=== PATIENT | female | born 2000 | race Caucasian/White ===

== ENCOUNTER 2025-07-13 10:47 | Emergency (ER) | payer MEDICAID ==
[~2025-07-13] VITALS: Ht 162.6 cm; Wt 49.0 kg
[2025-07-13 10:50] VITALS: TEMP 97.7
[2025-07-13 11:11] LABS: MEAN PLATELET VOLUME 8.5 FL (7.4-10.4); RED CELL DISTRIBUTION WIDTH 12.9 % (11.5-14.5)
[2025-07-13 11:23] LABS: CREATININE 0.85 MG/DL (0.40-0.90); TOTAL CARBON DIOXIDE 27.4 MMOL/L (24-32); eCRCL 78 ML/MIN; eGFR 81 ML/MIN
--- NOTE | 2025-07-13 11:27 | Physician Documentation ---
History of Present Illness Chief Complaint: Abdominal Pain Stated Complaint: KIDNEY PAIN Time Seen by MD: 11:19 HPI This is a pleasant 25-year-old female who presents for evaluation of one week of diffuse abdominal pain accompanied by nausea, vomiting, chills and sweats. No obvious trigger provocation. Initially thought this was related to her period, however despite her menstrual cycle finishing up the pain continued. And did not attempt to treat her symptoms. Smokes, drinks, denies drug use. Medication Reconciliation Allergies: Coded Allergies: No Known Allergies (Unverified , 07/13/25) Review of Systems ROS 10 point review of systems was performed and unless noted above in HPI is negative for acute process/complaint. Physical Exam Vital Signs: Temperature: 97.7, Heart Rate: 119, Respiratory Rate: 16, BP: 155/107, Pulse Oximetry: 98, Weight: 49.000 Oxygen Flow Rate: 0 Physical Exam GENERAL: Awake, alert, oriented, GCS 15, no apparent distress, non-toxic appearing, answers questions, follows commands appropriately. Examined in bed 15. HEENT: Atraumatic, normocephalic, pupils equal, extraocular muscles intact, sclerae anicteric, mucus membranes moist, oropharynx is clear, no stridor. NECK: supple, full active range of motion, trachea midline, no thyromegaly, no lymphadenopathy, no JVD. CARDIOVASCULAR: regular rate/rhythm, no murmurs/gallops/rubs, Pulses are 2+ in all extremities and symmetric. Capillary refill less than 2 seconds. PULMONARY: Nonlabored, good air movement ,no respiratory distress, speaking in full sentences, clear to auscultation bilaterally, no wheezing, no ronchi, no rales, no accessory muscle use. GASTROINTESTINAL: Soft, diffuse abdominal tenderness to palpation reproducing chief complaint without guarding or rebound, non-distended, normal active bowel sounds, no organomegaly, no pulsatile masses, no CVA tenderness. NEUROLOGIC: Lucid with normal mental status. Normal facial symmetry. Moves all extremities symmetrically and with purpose. No truncal ataxia. Speech is fluid without evidence of dysarthria or aphasia, no focal deficits appreciated. MUSCULOSKELETAL: There is full range of motion of all extremities. There is no joint pain or joint swelling or joint erythema. There is no muscle pain or tenderness or swelling. EXTREMITIES: warm, well-perfused, no cyanosis, no clubbing, no edema, no acute deformities. Skin: warm, dry, no rashes or lesions, no jaundice, no petechiae orpurpura. No ecchymosis. PSYCHIATRIC: Normal affect, normal insight, normal concentration. Focused exam: [] Progress Results/Orders Results/Orders Orders - BLANQUITA MALHOTRA DO Urinalysis, Cult If Indicated (07/13/25 10:55) Hcg, Ur Ql (07/13/25 10:55) BMP (07/13/25 10:55) Lipase (07/13/25 10:55) CMP (07/13/25 10:55) Completed Orders - BLANQUITA MALHOTRA DO Cbc/Diff (07/13/25 10:55) Vital Signs 07/13/25 10:50 Temp 97.7 Pulse 119 Resp 16 B/P (MAP) 155/107 Pulse Ox 98 O2 Flow Rate 0 Laboratory Tests Test 07/13/25 10:59 White Blood Count 8.0 Red Blood Count 4.80 Hemoglobin 15.9 Hematocrit 46.4 H Mean Corpuscular Volume 96.7 Mean Corpuscular Hemoglobin 33.1 H Mean Corpuscular Hemoglobin Concent 34.3 Red Cell Distribution Width 12.9 Platelet Count 244 Mean Platelet Volume 8.5 Neutrophils (%) (Auto) 64.9 Lymphocytes (%) (Auto) 28.7 Monocytes (%) (Auto) 5.2 Eosinophils (%) (Auto) 0.9 Basophils (%) (Auto) 0.3 Neutrophils # (Auto) 5.2 Lymphocytes # (Auto) 2.3 Monocytes # (Auto) 0.4 Eosinophils # (Auto) 0.1 Basophils # (Auto) 0.0 CBC Comment Chemistry Comments Medical Decision Making Findings Facility Status: ED Holds, [facility] The plan was discussed with the patient, who demonstrates clear understanding of the plan and is in agreement with the plan unless otherwise noted in the chart. All questions have been answered, all concerns were addressed unless otherwise documented. I was available throughout their ED stay for frequent reassessment and questions. Differential Diagnoses (considered and possible or likely): [Differential diagnosis considered includes acute appendicitis, acute cholecystitis, pancreatitis, gastritis, PUD, diverticulitis, mesenteric ischemia, abdominal aortic aneurysm, bowel obstruction, enteritis, colitis, fecal impaction, volvulus, IBS, inflammatory bowel disease, specific food intolerance, peritonitis, perforated viscous, malignancy, UTI, abscess, and abdominal pain NOS. Pelvic source of pain was also considered including endometritis, dysmenorrhea, ovarian cyst, ovarian torsion, PID, TOA, cervicitis, vaginitis, or uterine fibroid. History, physical exam, and workup exclude many of the more serious causes listed above. ] ??Differential Diagnoses (considered and unlikely, not requiring evaluation currently): [See above] MDM Data Please see [facility] for the following: Independent Historians and external Records Review. Historian: [Patient] Independent Historians: ?[Record review] Medication Management: [Reviewed medication list] Social History and determinants: [Reviewed] Please see the body of the note for the following: Any independent interpretations of ECG, imaging studies. All vitals signs/haemodynamics, ordered tests were independently reviewed and interpreted by myself. Nursing triage complaint and vitals reviewed, additional nursing notes were reviewed as available and I agree unless otherwise noted or documented in contra diction in the chart Vital Signs: Independently reviewed Labs: Independently interpreted Imaging: Independently interpreted Old Medical Records: Independently reviewed, see HPI for relevant summary and information Pulse Oximetry: [100%] interpreted as [normal on room air] by me [Dispute Coordinator: Tachycardic Rate, Regular rhythm, no ectopy, sinus tachycardia. reviewed and interpreted by me] Additionally notably showing: [Hemodynamics reviewed. The patient isn't febrile, not tachycardic, no evidence of hypotension respiratory distress. CBC is normal. Metabolic panel was essentially unremarkable. Lipase is normal. UA nondiagnostic for UTI. She would not . Toxicology is positive for THC. No drugs of abuse. CT of the abdomen and pelvis did not reveal any acute disease. Ultrasound was also unremarkable with a bilateral flow.] Tests considered but not ordered include: [Not Applicable, exhaustive workup was obtained] Social Determinants of Health Impact: Patient was evaluated in [facility] [place] to healthcare due to below par ratio of patient to medical providers. [] Comorbid Conditions Impacting Present Evaluation and Care/Treatment: [None] Management Discussions with other Healthcare Providers: [None] Treatment and Disposition Medication Management (Given or considered): [Pain management]. See EMR for details Consideration for Hospitalization/Escalation/Deescalation of Care: Admission for observation has been considered, [however the patient is able to tolerate p.o., their symptoms are controlled, they are able to rely on oral medications, and their chief complaint/diagnosis can be managed on outpatient basis.] ?ED Course:?[No clinical deterioration.] ?Shared decision making:?[Patient is hemodynamically stable for discharge home with follow with their primary care provider. [ ] Specific and cautious return precautions provided and discussed with full understanding. Any incidental findings were also discussed and follow up recommendations given. [] All questions answered. Patient/family were able to verbalize back return precautions. Patient/family agree to plan. Copies of imaging and laboratory studies were provided.] Code status:?FULL Please see the full Electronic Medical Record for full details of nursing documentation, medications list, other records of complete past medical history and conditions, vital signs, laboratory studies, and any radiologic study interpretations by radiologists. Portions of this note were completed using [employer] dictation software and as a result there may exist minor errors in spelling. I have reviewed elements of past family and social history and agree as included in note. Departure Disposition: 01 HOME / SELF CARE / HOMELESS Impression: Primary Impression: Diffuse abdominal pain Additional Impression: Nausea and vomiting Condition: Improved Discharge Instructions: Abdominal Pain (Nonspecific) Referrals: NO PRIMARY CARE PROVIDER (PCP) Prescriptions Dicyclomine HCl (Dicyclomine HCl) 20 Mg Tablet 1 TAB PO Q8H for irritable bowel symptoms for 10 Days, #30 TAB 0 Refills Prov: BLANQUITA MALHOTRA DO 07/13/25 Hydrocodone Bit/Acetaminophen 5/325 MG ([place] 5/325 MG) 5 Mg/325 Mg Tablet 1 TAB PO Q6H PRN for pain, #14 TAB Prov: BLANQUITA MALHOTRA DO 07/13/25 ONDANSETRON ODT 4mg tablet (ONDANSETRON ODT) 4 Mg Tab.rapdis 1 TAB PO Q6H PRN PRN for nausea/vomiting for 4 Days, #16 TAB 0 Refills Prov: BLANQUITA MALHOTRA DO 07/13/25 Education Educated: Patient Educated regarding: diagnosis, treatment, prognosis, need for follow up Signature Scribe Signature: No scribe Attestation: This note accurately reflects clinical decisions, work performed by myself, DO ROSCOE Spence NICHOLAS M DO Jul 13, 2025 11:27
[2025-07-13] MEDS: ondansetron/PF 4mg/2ml inj IV ONE (11:52)
[2025-07-13] MEDS: normal saline 1000ml 1,000 ML IV ONE (11:52)
[2025-07-13] MEDS: morphine 4 MG/ML inj SYRINge IV ONE (11:53)
[2025-07-13] MEDS ORDERED: iohexol 300mg/ml 100ml inj. ONE (12:04)
[2025-07-13 12:47] LABS: LEUKOCYTE ESTERASE ,URINE NEGATIVE (Neg); NITRITES, URINE NEGATIVE (Neg); OCCULT BLOOD,URINE NEGATIVE (Neg)
[2025-07-13 12:51] LABS: URINE HCG NEGATIVE (NEG)
[2025-07-13 12:52] LABS: UA COLLECTION TYPE CLN CATCH MIDSTREAM
[2025-07-13 13:05] LABS: URINE AMPHETAMINE SCREEN NEGATIVE (Neg); URINE BARBITUATE SCREEN NEGATIVE (Neg); URINE BENZODIAZEPINES SCREEN NEGATIVE (Neg); URINE CANNABINOID SCREEN POSITIVE (Neg); URINE COCAINE SCREEN NEGATIVE (Neg); URINE METHADONE SCREEN NEGATIVE (Neg); URINE OPIATE SCREEN NEGATIVE (Neg); URINE PHENCYCLIDINE SCREEN NEGATIVE (Neg)
--- NOTE | 2025-07-13 14:11 | RADIOLOGY REPORT ---
Indication: diffuse abd pain, n/v Technique: CT axial images of the abdomen and pelvis are obtained with intravenous contrast. Coronal and sagittal reformats were obtained. Radiation Dose Information: CTDI volume is 6 mGy. Dose-length product is 279 mGy*cm Comparison: CT ABD PELVIS W/ IV CONTRAST on DOS: 11/02/24 report only FINDINGS: Lung bases demonstrate no pleural effusion. Adrenal glands, spleen, pancreas, liver unremarkable. No CT evidence for cholelithiasis. No hydronephrosis. Stomach is partially distended. Small bowel loops normal in caliber. Descending, rectosigmoid colon mucosal hyperemia. Appendix not well visualized. Abdominal aorta normal in caliber. Bladder distended. Hyperemia of the uterus and ovaries. 1.5 cm left ovarian corpus luteal cyst. Trace of free pelvic fluid. No inguinal lymphadenopathy. No aggressive osseous process. IMPRESSION: Mucosal hyperemia descending and rectosigmoid colon which can be seen with colitis, inflammatory bowel disease. Hyperemia of the uterus, ovaries/ adnexa. Recommend pelvic ultrasound to further evaluate. Trace free pelvic fluid Other findings as described.
[2025-07-13] MEDS: fentaNYL/PF 50MCG/1 ML 2ML syringe IV ONE (15:13)
--- NOTE | 2025-07-13 16:01 | RADIOLOGY REPORT ---
CLINICAL HISTORY: Pelvic pain. COMPARISON:CT CT ABDOMEN PELVIS W/ IV CONTRAST on DOS: 07/13/25, CT ABD PELVIS W/ IV CONTRAST on DOS: 11/02/24 TECHNIQUE: Transvaginal grayscale sonographic imaging of the uterus and ovaries was performed, assisted by color Doppler technique. Duplex Doppler ultrasound of both ovaries was also performed. FINDINGS: The uterus measures 5.4 x 3.3 x 4.6 cm. There is homogeneous echogenicity. Endometrial thickness measures 1.2 cm, within normal limits. Small amount of free fluid in the cul-de-sac, likely physiologic fluid. Right ovary measures 3.1 x 2.1 x 1.5 cm. Arterial and venous blood flow demonstrated. Dominant follicle measures up to 0.6 cm. Left ovary measures 2.8 x 2.1 x 1.8 cm. Arterial and venous blood flow demonstrated. Dominant follicle measures up to 0.9 cm. IMPRESSION: 1. Unremarkable sonographic appearance of the uterus and ovaries. 2. No sonographic evidence of ovarian torsion.
[2025-07-13] MEDS ORDERED: DICY20TA17 PO (16:54)
[2025-07-13] MEDS ORDERED: HYDR-3965 PO (16:54)
[2025-07-13] MEDS ORDERED: ONDA-243 PO (16:54)
[2025-07-13 17:05] VITALS: BP 124/77; PULSE 67; RESP 18; O2SAT 97
== END 2025-07-13 17:18 | disposition home or self-care (01) ==
LOC: ER 10:47
DX: R10.9 Unspecified abdominal pain (principal); F17.200 Nicotine dependence, unspecified, uncomplicated; Z79.899 Other long term (current) drug therapy
CPT/HCPCS: 36415; 74177; 76830; 76856; 80053; 80305; 81003; 81025; 83690; 85025; 93976; 96374; 96375; 99285; J2270; J2405; J3010; J7030; Q9967